=== PATIENT | male | born 1940 | race Hispanic/Latino ===

== ENCOUNTER 2022-12-05 17:40 | Inpatient (IN) | payer OTHER ==
[2022-12-05] MEDS ORDERED: fentaNYL PF 100 MCG/2 ML SYRINGE ONE (18:17)
[2022-12-05] MEDS ORDERED: Dexmedetomidine 200 MCG/2 ML VIAL ONE (18:17)
[2022-12-05] MEDS ORDERED: cefTRIAXone (ROCEPHIN) 2 GM VIAL ONE (18:22)
[2022-12-05] MEDS ORDERED: Norepinephrine 4 MG/4 ML VIAL ONE (18:29)
[2022-12-05] MEDS ORDERED: Albumin 5% 500 ML ONE (18:29)
[2022-12-05] MEDS ORDERED: Phenylephrine 10 MG/ML VIAL ONE (18:30)
[2022-12-05] MEDS ORDERED: Esmolol 100 MG/10 ML VIAL ONE (18:40)
[2022-12-05] MEDS ORDERED: Rocuronium Bromide 10 MG/ML (10ML VIAL) ONE (18:40)
[2022-12-05] MEDS ORDERED: PROPOFOL 200 MG/20 ML VIAL ONE (18:40)
[2022-12-05] MEDS ORDERED: Ondansetron PF 4 MG/2 ML Vial ONE (18:40)
[2022-12-05 20:34] VITALS: BMI 24.0
[2022-12-05] MEDS ORDERED: Ondansetron PF 4 MG/2 ML Vial IVP PRN (20:54)
[2022-12-05] MEDS ORDERED: cefTRIAXone\\ROCEPHIN 1 GM in Sodium Chloride 0.9% 100 ML IVPB SCH (21:00)
[2022-12-05 22:34] LABS: Hemoglobin 7.7 g/dL (14.0-18.0); Platelet Count 151 10x3/uL (130-400)
[2022-12-05 22:47] LABS: INR-International Normal Ratio 1.7; Prothrombin Time 20.9 sec (12.0-14.7)
[2022-12-06 04:58] LABS: #Eosinphils 0.1 thou/uL (0.0-0.7); #Monocytes 0.3 thou/uL (0.11-0.59); #Neutrophils 2.5 thou/uL (1.40-6.50); %Basophils 0.7 % (0.0-1.0); %Eosinophils 1.9 % (0.0-10.0); %Lymphocytes 32.5 % (21.0-51.0); %Monocytes 6.1 % (0.0-10.0); %Neutrophils 58.6 % (42.0-75.0); Hemoglobin 7.8 g/dL (14.0-18.0); Mean Corpuscular HGB CONC 32.2 g/dL (32.0-36.0); Mean Corpuscular Hemoglobin 30.6 pg (27.0-31.0); Mean Corpuscular Volume 94.9 fl (78.0-98.0); Mean Platelet Volume 8.9 fL (7.4-10.4); Platelet Count 163 10x3/uL (130-400); RBC Distribution Width 14.6 % (11.5-14.5); Red Blood Cell (RBC) Count 2.55 mill/uL (4.70-6.10); White Blood Cell (WBC) Count 4.3 10x3/uL (4.8-10.8)
[2022-12-06 05:24] LABS: Anion Gap 10 mmol/L (10-20); BUN (Urea Nitrogen) 21 mg/dL (8.4-25.7); Calc. Creatinine Clearance 97 mL/min (70-130); Calcium 8.3 mg/dL (7.8-10.44); Carbon Dioxide 28 mmol/L (23-31); Chloride 107 mmol/L (98-107); Estimated GFR 95; Glucose 88 mg/dL (83-110); Potassium 3.5 mmol/L (3.5-5.1); Sodium 141 mmol/L (136-145)
[2022-12-07 04:12] LABS: #Eosinphils 0.1 thou/uL (0.0-0.7); #Monocytes 0.3 thou/uL (0.11-0.59); #Neutrophils 2.3 thou/uL (1.40-6.50); %Basophils 0.7 % (0.0-1.0); %Eosinophils 2.4 % (0.0-10.0); %Lymphocytes 33.3 % (21.0-51.0); %Monocytes 6.3 % (0.0-10.0); %Neutrophils 57.1 % (42.0-75.0); Hemoglobin 8.1 g/dL (14.0-18.0); Mean Corpuscular HGB CONC 31.3 g/dL (32.0-36.0); Mean Corpuscular Hemoglobin 29.6 pg (27.0-31.0); Mean Corpuscular Volume 94.5 fl (78.0-98.0); Mean Platelet Volume 8.5 fL (7.4-10.4); Platelet Count 155 10x3/uL (130-400); RBC Distribution Width 14.6 % (11.5-14.5); Red Blood Cell (RBC) Count 2.74 mill/uL (4.70-6.10); White Blood Cell (WBC) Count 4.1 10x3/uL (4.8-10.8)
[2022-12-07 04:35] LABS: Anion Gap 11 mmol/L (10-20); BUN (Urea Nitrogen) 19 mg/dL (8.4-25.7); Calc. Creatinine Clearance 81 mL/min (70-130); Calcium 8.6 mg/dL (7.8-10.44); Carbon Dioxide 27 mmol/L (23-31); Chloride 108 mmol/L (98-107); Estimated GFR 90; Glucose 103 mg/dL (83-110); Potassium 3.5 mmol/L (3.5-5.1); Sodium 142 mmol/L (136-145)
[2022-12-07 04:58] LABS: INR-International Normal Ratio 1.2; Prothrombin Time 15.7 sec (12.0-14.7)
[2022-12-07] MEDS: cefTRIAXone\\ROCEPHIN 1 GM in Sodium Chloride 0.9% 100 ML IVPB SCH (06:02)
[2022-12-07] MEDS: Acetaminophen 325 MG TAB PO PRN (21:09)
[2022-12-08] MEDS: Acetaminophen 325 MG TAB PO PRN (05:15)
[2022-12-08] MEDS: cefTRIAXone\\ROCEPHIN 1 GM in Sodium Chloride 0.9% 100 ML IVPB SCH (05:15)
[2022-12-08 06:11] LABS: #Eosinphils 0.1 thou/uL (0.0-0.7); #Monocytes 0.2 thou/uL (0.11-0.59); #Neutrophils 2.8 thou/uL (1.40-6.50); %Basophils 0.7 % (0.0-1.0); %Eosinophils 2.4 % (0.0-10.0); %Lymphocytes 26.8 % (21.0-51.0); %Neutrophils 65.9 % (42.0-75.0); Hemoglobin 8.9 g/dL (14.0-18.0); Mean Corpuscular HGB CONC 32.2 g/dL (32.0-36.0); Mean Corpuscular Volume 92.9 fl (78.0-98.0); Mean Platelet Volume 8.9 fL (7.4-10.4); Platelet Count 184 10x3/uL (130-400); RBC Distribution Width 14.6 % (11.5-14.5); Red Blood Cell (RBC) Count 2.97 mill/uL (4.70-6.10); White Blood Cell (WBC) Count 4.2 10x3/uL (4.8-10.8)
[2022-12-08 06:24] LABS: INR-International Normal Ratio 1.2; Prothrombin Time 15.7 sec (12.0-14.7)
[2022-12-08 06:27] LABS: Anion Gap 12 mmol/L (10-20); BUN (Urea Nitrogen) 9 mg/dL (8.4-25.7); Calc. Creatinine Clearance 108 mL/min (70-130); Calcium 8.5 mg/dL (7.8-10.44); Carbon Dioxide 27 mmol/L (23-31); Chloride 103 mmol/L (98-107); Estimated GFR 97; Glucose 104 mg/dL (83-110); Potassium 3.3 mmol/L (3.5-5.1); Sodium 139 mmol/L (136-145)
[2022-12-08] MEDS ORDERED: Tamsulosin HCl 0.4 MG CAP PO SCH (09:00)
[2022-12-08] MEDS: Finasteride 5 MG TAB PO SCH (09:54)
[2022-12-08] MEDS: Tamsulosin HCl 0.4 MG CAP PO SCH ×2 (09:54→20:51)
[2022-12-08] MEDS ORDERED: Warfarin Sodium 5 MG TAB PO SCH (17:00)
[2022-12-09] MEDS: cefTRIAXone\\ROCEPHIN 1 GM in Sodium Chloride 0.9% 100 ML IVPB SCH (05:50)
[2022-12-09 06:31] LABS: INR-International Normal Ratio 1.2; Prothrombin Time 15.6 sec (12.0-14.7)
[2022-12-09] MEDS ORDERED: Bisacodyl 10 MG SUPP PR PRN (07:41)
[2022-12-09] MEDS: Tamsulosin HCl 0.4 MG CAP PO SCH ×2 (08:31→20:33)
[2022-12-09] MEDS: Docusate 100 MG CAP PO SCH ×2 (08:31→20:33)
[2022-12-09] MEDS: Finasteride 5 MG TAB PO SCH (08:31)
[2022-12-09] MEDS ORDERED: Warfarin Sodium 5 MG TAB PO SCH (17:00)
[2022-12-10] MEDS: cefTRIAXone\\ROCEPHIN 1 GM in Sodium Chloride 0.9% 100 ML IVPB SCH (05:34)
[2022-12-10 05:37] LABS: #Eosinphils 0.1 thou/uL (0.0-0.7); #Monocytes 0.3 thou/uL (0.11-0.59); #Neutrophils 2.9 thou/uL (1.40-6.50); %Basophils 0.6 % (0.0-1.0); %Eosinophils 2.8 % (0.0-10.0); %Monocytes 6.5 % (0.0-10.0); %Neutrophils 61.9 % (42.0-75.0); Hemoglobin 8.8 g/dL (14.0-18.0); Mean Corpuscular HGB CONC 31.7 g/dL (32.0-36.0); Mean Corpuscular Hemoglobin 29.1 pg (27.0-31.0); Mean Corpuscular Volume 92.1 fl (78.0-98.0); Mean Platelet Volume 8.9 fL (7.4-10.4); Platelet Count 209 10x3/uL (130-400); RBC Distribution Width 14.9 % (11.5-14.5); Red Blood Cell (RBC) Count 3.02 mill/uL (4.70-6.10); White Blood Cell (WBC) Count 4.6 10x3/uL (4.8-10.8)
[2022-12-10 05:48] LABS: INR-International Normal Ratio 1.2; Prothrombin Time 15.4 sec (12.0-14.7)
[2022-12-10 06:04] LABS: Anion Gap 11 mmol/L (10-20); BUN (Urea Nitrogen) 12 mg/dL (8.4-25.7); Calc. Creatinine Clearance 100 mL/min (70-130); Calcium 8.7 mg/dL (7.8-10.44); Carbon Dioxide 27 mmol/L (23-31); Chloride 103 mmol/L (98-107); Estimated GFR 95; Glucose 109 mg/dL (83-110); Potassium 3.4 mmol/L (3.5-5.1); Sodium 138 mmol/L (136-145)
[2022-12-10] MEDS: Docusate 100 MG CAP PO SCH ×2 (08:52→21:18)
[2022-12-10] MEDS: Tamsulosin HCl 0.4 MG CAP PO SCH ×2 (08:52→21:18)
[2022-12-10] MEDS: Finasteride 5 MG TAB PO SCH (08:52)
[2022-12-10] MEDS ORDERED: traMADol HCl 50 MG TAB PO SCH (11:15)
[2022-12-10] MEDS ORDERED: Potassium Chloride 20 MEQ TAB PO SCH (11:15)
[2022-12-10] MEDS: Warfarin Sodium 7.5 MG TAB PO SCH (17:59)
[2022-12-11] MEDS: Acetaminophen 325 MG TAB PO PRN ×2 (03:14→07:39)
[2022-12-11] MEDS: cefTRIAXone\\ROCEPHIN 1 GM in Sodium Chloride 0.9% 100 ML IVPB SCH (05:35)
[2022-12-11 05:41] LABS: #Eosinphils 0.1 thou/uL (0.0-0.7); #Monocytes 0.4 thou/uL (0.11-0.59); #Neutrophils 4.3 thou/uL (1.40-6.50); %Basophils 0.2 % (0.0-1.0); %Eosinophils 0.8 % (0.0-10.0); %Lymphocytes 22.1 % (21.0-51.0); %Monocytes 6.6 % (0.0-10.0); Hemoglobin 9.1 g/dL (14.0-18.0); Mean Corpuscular HGB CONC 31.9 g/dL (32.0-36.0); Mean Corpuscular Hemoglobin 29.4 pg (27.0-31.0); Mean Corpuscular Volume 91.9 fl (78.0-98.0); Mean Platelet Volume 8.7 fL (7.4-10.4); Platelet Count 208 10x3/uL (130-400); White Blood Cell (WBC) Count 6.1 10x3/uL (4.8-10.8)
[2022-12-11 05:57] LABS: INR-International Normal Ratio 1.3; Prothrombin Time 16.6 sec (12.0-14.7)
[2022-12-11 06:04] LABS: Anion Gap 13 mmol/L (10-20); BUN (Urea Nitrogen) 16 mg/dL (8.4-25.7); Calc. Creatinine Clearance 97 mL/min (70-130); Calcium 8.8 mg/dL (7.8-10.44); Carbon Dioxide 24 mmol/L (23-31); Chloride 102 mmol/L (98-107); Estimated GFR 94; Glucose 122 mg/dL (83-110); Potassium 3.9 mmol/L (3.5-5.1); Sodium 135 mmol/L (136-145)
[2022-12-11] MEDS: Tamsulosin HCl 0.4 MG CAP PO SCH ×2 (09:27→20:28)
[2022-12-11] MEDS: Finasteride 5 MG TAB PO SCH (09:27)
[2022-12-11] MEDS: Docusate 100 MG CAP PO SCH ×2 (09:27→20:28)
[2022-12-11] MEDS: Warfarin Sodium 7.5 MG TAB PO SCH (17:47)
[2022-12-12] MEDS: cefTRIAXone\\ROCEPHIN 1 GM in Sodium Chloride 0.9% 100 ML IVPB SCH (05:45)
[2022-12-12 07:08] LABS: #Monocytes 0.4 thou/uL (0.11-0.59); #Neutrophils 4.9 thou/uL (1.40-6.50); %Basophils 0.4 % (0.0-1.0); %Eosinophils 0.3 % (0.0-10.0); %Monocytes 6.4 % (0.0-10.0); %Neutrophils 73.6 % (42.0-75.0); Hemoglobin 10.2 g/dL (14.0-18.0); Mean Corpuscular HGB CONC 32.4 g/dL (32.0-36.0); Mean Corpuscular Hemoglobin 30.1 pg (27.0-31.0); Mean Corpuscular Volume 92.9 fl (78.0-98.0); Platelet Count 197 10x3/uL (130-400); RBC Distribution Width 14.7 % (11.5-14.5); Red Blood Cell (RBC) Count 3.39 mill/uL (4.70-6.10); White Blood Cell (WBC) Count 6.7 10x3/uL (4.8-10.8)
[2022-12-12 07:22] LABS: INR-International Normal Ratio 1.5; Prothrombin Time 18.4 sec (12.0-14.7)
[2022-12-12 07:30] LABS: Anion Gap 16 mmol/L (10-20); BUN (Urea Nitrogen) 20 mg/dL (8.4-25.7); Calc. Creatinine Clearance 85 mL/min (70-130); Carbon Dioxide 22 mmol/L (23-31); Chloride 101 mmol/L (98-107); Estimated GFR 90; Glucose 127 mg/dL (83-110); Potassium 3.3 mmol/L (3.5-5.1); Sodium 136 mmol/L (136-145)
[2022-12-12] MEDS: Docusate 100 MG CAP PO SCH ×2 (08:55→22:11)
[2022-12-12] MEDS: Doxycycline 100 MG CAP PO SCH ×2 (08:55→22:11)
[2022-12-12] MEDS: Tamsulosin HCl 0.4 MG CAP PO SCH ×2 (08:55→22:11)
[2022-12-12] MEDS: Finasteride 5 MG TAB PO SCH (08:55)
[2022-12-12] MEDS ORDERED: Potassium Chloride 20 MEQ TAB PO SCH (09:00)
[2022-12-12] MEDS ORDERED: Aspirin 81 mg Enteric Coated Tablet PO SCH (14:45)
[2022-12-12] MEDS: Warfarin Sodium 10 MG TAB PO SCH (17:54)
[2022-12-12] MEDS: Acetaminophen 325 MG TAB PO PRN ×2 (17:57→22:11)
[2022-12-12] MEDS ORDERED: MINOCYCLINE HCL 100 MG PO SCH (21:00)
[2022-12-13 05:45] LABS: #Eosinphils 0.1 thou/uL (0.0-0.7); #Monocytes 0.3 thou/uL (0.11-0.59); #Neutrophils 3.2 thou/uL (1.40-6.50); %Basophils 0.8 % (0.0-1.0); %Eosinophils 1.6 % (0.0-10.0); %Lymphocytes 27.1 % (21.0-51.0); %Monocytes 5.9 % (0.0-10.0); %Neutrophils 64.2 % (42.0-75.0); Mean Corpuscular HGB CONC 32.3 g/dL (32.0-36.0); Mean Corpuscular Hemoglobin 29.6 pg (27.0-31.0); Mean Corpuscular Volume 91.8 fl (78.0-98.0); Platelet Count 205 10x3/uL (130-400); RBC Distribution Width 14.6 % (11.5-14.5); Red Blood Cell (RBC) Count 3.04 mill/uL (4.70-6.10); White Blood Cell (WBC) Count 4.9 10x3/uL (4.8-10.8)
[2022-12-13 05:58] LABS: Prothrombin Time 23.6 sec (12.0-14.7)
[2022-12-13 06:08] LABS: Anion Gap 15 mmol/L (10-20); BUN (Urea Nitrogen) 19 mg/dL (8.4-25.7); Calc. Creatinine Clearance 95 mL/min (70-130); Calcium 8.6 mg/dL (7.8-10.44); Carbon Dioxide 22 mmol/L (23-31); Chloride 103 mmol/L (98-107); Estimated GFR 93; Glucose 116 mg/dL (83-110); Potassium 3.8 mmol/L (3.5-5.1); Sodium 136 mmol/L (136-145)
[2022-12-13] MEDS: cefTRIAXone\\ROCEPHIN 1 GM in Sodium Chloride 0.9% 100 ML IVPB SCH (06:14)
[2022-12-13] MEDS: Doxycycline 100 MG CAP PO SCH ×2 (09:42→21:04)
[2022-12-13] MEDS: Finasteride 5 MG TAB PO SCH (09:42)
[2022-12-13] MEDS: Docusate 100 MG CAP PO SCH ×2 (09:42→21:04)
[2022-12-13] MEDS: Tamsulosin HCl 0.4 MG CAP PO SCH ×2 (09:42→21:04)
[2022-12-13] MEDS: Aripiprazole 10 MG TAB PO SCH (09:42)
[2022-12-13] MEDS: FLUoxetine HCl 20 MG CAP PO SCH (09:42)
[2022-12-13] MEDS: Warfarin Sodium 10 MG TAB PO SCH (17:15)
[2022-12-13] MEDS: Acetaminophen 325 MG TAB PO PRN (21:04)
[2022-12-14 05:52] LABS: #Eosinphils 0.1 thou/uL (0.0-0.7); #Monocytes 0.2 thou/uL (0.11-0.59); #Neutrophils 2.4 thou/uL (1.40-6.50); %Basophils 0.8 % (0.0-1.0); %Eosinophils 3.5 % (0.0-10.0); %Lymphocytes 29.5 % (21.0-51.0); %Neutrophils 60.7 % (42.0-75.0); Hemoglobin 8.6 g/dL (14.0-18.0); Mean Corpuscular HGB CONC 32.5 g/dL (32.0-36.0); Mean Corpuscular Hemoglobin 28.9 pg (27.0-31.0); Mean Corpuscular Volume 88.9 fl (78.0-98.0); Mean Platelet Volume 8.8 fL (7.4-10.4); Platelet Count 252 10x3/uL (130-400); RBC Distribution Width 14.6 % (11.5-14.5); Red Blood Cell (RBC) Count 2.98 mill/uL (4.70-6.10)
[2022-12-14 06:23] LABS: Anion Gap 10 mmol/L (10-20); BUN (Urea Nitrogen) 13 mg/dL (8.4-25.7); Calc. Creatinine Clearance 94 mL/min (70-130); Calcium 8.2 mg/dL (7.8-10.44); Carbon Dioxide 26 mmol/L (23-31); Chloride 104 mmol/L (98-107); Estimated GFR 93; Glucose 113 mg/dL (83-110); Potassium 3.3 mmol/L (3.5-5.1); Sodium 137 mmol/L (136-145)
[2022-12-14] MEDS: Tamsulosin HCl 0.4 MG CAP PO SCH ×2 (09:18→21:06)
[2022-12-14] MEDS: Finasteride 5 MG TAB PO SCH (09:18)
[2022-12-14] MEDS: Aripiprazole 10 MG TAB PO SCH (09:18)
[2022-12-14] MEDS: FLUoxetine HCl 20 MG CAP PO SCH (09:18)
[2022-12-14] MEDS: Doxycycline 100 MG CAP PO SCH ×2 (09:18→21:06)
[2022-12-14] MEDS: Docusate 100 MG CAP PO SCH ×2 (09:18→21:06)
[2022-12-14 09:34] LABS: INR-International Normal Ratio 2.9; Prothrombin Time 31.2 sec (12.0-14.7)
[2022-12-14] MEDS ORDERED: Warfarin Sodium 7.5 MG TAB PO SCH (17:00)
[2022-12-14] MEDS: Acetaminophen 325 MG TAB PO PRN (21:05)
[2022-12-15 00:45] VITALS: BP 104/63; TEMP 97.9
== END 2022-12-15 00:37 | DRG 694 ==
LOC: SDC 17:40 → CCU 18:32 → EEVIPCON 18:32 → SJJU 12-07 17:33
PROVIDERS: ADMIT Internal Medicine; ATTEND Emergency Medicine
PROC: 0T9B80Z Drainage of Bladder with Drainage Device, Via Natural or Artificial Opening Endoscopic (ICD-10-PCS; principal; 2022-12-05)
PROC: 30233K1 Transfusion of Nonautologous Frozen Plasma into Peripheral Vein, Percutaneous Approach (ICD-10-PCS; 2022-12-05)
PROC: 0T9B70Z Drainage of Bladder with Drainage Device, Via Natural or Artificial Opening (ICD-10-PCS; 2022-12-09)
DX: N13.30 Unspecified hydronephrosis (principal); I50.32 Chronic diastolic (congestive) heart failure; D62 Acute posthemorrhagic anemia; D68.9 Coagulation defect, unspecified; I48.21 Permanent atrial fibrillation; I48.20 Chronic atrial fibrillation, unspecified; R31.0 Gross hematuria; N40.1 Benign prostatic hyperplasia with lower urinary tract symptoms; I11.0 Hypertensive heart disease with heart failure; I73.9 Peripheral vascular disease, unspecified; E87.6 Hypokalemia; M19.022 Primary osteoarthritis, left elbow; R33.9 Retention of urine, unspecified; Z88.2 Allergy status to sulfonamides; Z79.899 Other long term (current) drug therapy; Z79.82 Long term (current) use of aspirin; Z79.01 Long term (current) use of anticoagulants; Z87.891 Personal history of nicotine dependence
CPT/HCPCS: 36415; 36416; 36430; 80048; 85025; 85610; 86850; 86900; 86901; 88121; J0696; J1650; J2370; J2405; J2704; J3490; P9045; P9059